=== PATIENT | female | born 1985 | race Caucasian/White ===

== ENCOUNTER 2021-08-09 06:00 | Day surgery (SDC) | payer OTHER ==
[~2021-08-09] VITALS: Ht 162.6 cm; Wt 101.6 kg
[~2021-08-09 06:00] MED LIST: AMOX500 PO; CIPR100 PO; CODGUAEL PO; ESCI20 PO; LOSA25 PO; MULVITMINE; PHENA200 PO; RXCODGUASY PO; TRAZ50 PO
[2021-08-09] MEDS ORDERED: Lisinopril-Hct1 EAC4 PO (06:21)
[2021-08-09] MEDS ORDERED: ZYRTEC10 M2 PO (06:21)
[2021-08-09] MEDS ORDERED: EUTHYROX50 MCG PO (06:22)
[2021-08-09] MEDS ORDERED: OMEP20ER PO (06:22)
--- NOTE | 2021-08-09 07:06 | NUR ---
History, Chart, Medications and Allergies reviewed before start of procedure. Lungs clear T/O to Auscultation. Patient confirms NPO status and agrees with scheduled surgery. Pre-Op teaching done. Pt verbalizes understanding. Patient States Post-Procedure ride home has been arranged. Patient reports completing Chlorhexadine shower X2 prior to admission to hospital.
--- NOTE | 2021-08-09 13:30 | NUR ---
TOOK REPORT FROM SAULO, ASSUMED CARE OF PT. PT'S VSS. PT SITTING UP IN [facility] ON PHONE. DENIES ANY NEEDS AT THIS TIME. WILL CONTINUE TO MONITOR.
--- NOTE | 2021-08-09 14:04 | NUR ---
PT UP TO AMBLULATE. STEADY GAIT.
--- NOTE | 2021-08-09 14:09 | NUR ---
PT ON ROOM AIR AFTER AMBULATION 90%-95%.
--- NOTE | 2021-08-09 15:42 | NUR ---
Discharge instructions reviewed with patient. Patient verbalizes understanding. Copy given to patient to take home. Patient States Post-Procedure ride home has been arranged. Discharged via wheelchair to private car for ride home. IV DCD CATH INTACT PT REMINDEDD TO DO BREATHING EXCERSIZES EVERY FEW HOURS 4 SITES TO ABD WITH DERMABOND IN PLACE CLEAR
--- NOTE | 2021-08-13 10:56 | NUR ---
08/13/21 1056 Anahy Bhagat VERIFICATIONS: EDIT CHART.
== END 2021-08-09 23:44 | disposition home or self-care (01) ==
LOC: ORSCMMR 06:00 → ORD 07:30 → ORSCMMR 07:30 → ORD 09-06 07:30
PROVIDERS: Obstetrics & Gynecology
PROC: 0UT74ZZ Resection of Bilateral Fallopian Tubes, Percutaneous Endoscopic Approach (ICD-10-PCS; principal; 2021-08-09 07:30)
PROC: 0TBB4ZZ Excision of Bladder, Percutaneous Endoscopic Approach (ICD-10-PCS; principal; 2021-08-09 07:30)
PROC: 8E0W4CZ Robotic Assisted Procedure of Trunk Region, Percutaneous Endoscopic Approach (ICD-10-PCS; principal; 2021-08-09 07:30)
DX: N83.201 Unspecified ovarian cyst, right side (principal); N83.202 Unspecified ovarian cyst, left side; Z30.2 Encounter for sterilization; N80.3 Endometriosis of pelvic peritoneum; I10 Essential (primary) hypertension; G47.33 Obstructive sleep apnea (adult) (pediatric); K21.9 Gastro-esophageal reflux disease without esophagitis; E03.9 Hypothyroidism, unspecified; E66.01 Morbid (severe) obesity due to excess calories; Z68.38 Body mass index [BMI] 38.0-38.9, adult; Z79.899 Other long term (current) drug therapy
CPT/HCPCS: 58661; 58662; S2900; 88302; 88305; A9270; J0690; J1100; J2250; J2405; J2704; J3010; J7120

== ENCOUNTER 2024-03-25 11:16 | Day surgery (SDC) | payer OTHER ==
[2024-03-25] VITALS (16 sets, daily range): BP systolic 125–157; BP diastolic 80–100
[~2024-03-25] VITALS: Ht 162.6 cm; Wt 97.6 kg
[~2024-03-25 11:16] MED LIST changes: +EUTHYROX50 MCG PO; +Lisinopril-Hct1 EAC4 PO; +OMEP20ER PO; +ZYRTEC10 M2 PO
[2024-03-25] MEDS ORDERED: CeFAZolin Sodium 2,000 MG in NS 100 ML IV SCH ×2 (12:15→20:00)
[2024-03-25] MEDS ORDERED: Lactated Ringer's 1,000 ML IV SCH ×2 (12:15→17:20)
--- NOTE | 2024-03-25 12:43 | NUR ---
Ambulatory in Day Surgery. History, Chart, Medications and Allergies reviewed before start of procedure. Lungs clear T/O to Auscultation. Patient confirms NPO status and agrees with scheduled surgery. Pre-Op teaching done. Pt verbalizes understanding. PT BELONGINGS PLACED UNDERNEATH GURNEY FOR SAFEKEEPING.
[2024-03-25] MEDS ORDERED: propofoL 20 ML IV ONE (13:21)
[2024-03-25] MEDS ORDERED: Rocuronium Bromide 10 MG/ML 5ML Injection IV ONE ×3 (13:21→15:30)
[2024-03-25] MEDS ORDERED: FentaNYL Citrate 50 MCG/ML 2 ML Injection ONE ×4 (13:21→15:49)
[2024-03-25] MEDS ORDERED: Ondansetron HCl 2 MG / ML 2ML Vial IV PRN ×2 (13:25→17:25)
[2024-03-25] MEDS ORDERED: Midazolam HCl 1MG / ML 2ML Vial IV ONE (13:25)
[2024-03-25] MEDS ORDERED: Lidocaine HCl 1% 5 ML SYR INJ ONE (13:25)
[2024-03-25] MEDS ORDERED: FentaNYL Citrate 50 MCG/ML 2 ML Injection IV PRN ×3 (13:25→13:30)
--- NOTE | 2024-03-25 14:02 | NUR ---
PT HAS PIERCINGS TO LIP, SEPTUM AND NIPPLES THAT CANNOT BE REMOVED. PIERCINGS TAPED. OR NOTIFIED, JEWELRY CONSENT SIGNED. PT BELONGINGS PLACED UNDERNEATH GURNEY FOR SAFEKEEPING. PT GLASSES TAKEN TO PACU FOR SAFEKEEPING.
[2024-03-25] MEDS ORDERED: Labetalol HCL 5 MG/ML 4ML Injection (Single Dose) ONE (14:15)
[2024-03-25] MEDS ORDERED: Dexamethasone Sod Phos 10 MG/ML 1ML VIAL ONE (14:21)
[2024-03-25] MEDS ORDERED: Ondansetron HCl 2 MG / ML 2ML Vial ONE (14:21)
[2024-03-25] MEDS ORDERED: Bupivacaine 0.5% HCl 5 MG/ML 30MLVIAL ONE (15:07)
[2024-03-25] MEDS ORDERED: Sugammadex Sodium 200 MG/2ML SDV (100 MG/ML) ONE (16:07)
[2024-03-25] MEDS ORDERED: Ketorolac Tromethamine 30mg Vial ONE (16:43)
[2024-03-25] MEDS ORDERED: Promethazine HCl 12.5 MG Supp PR PRN (17:15)
[2024-03-25] MEDS ORDERED: Simethicone 80 MG Chew PO PRN (17:15)
[2024-03-25] MEDS ORDERED: Promethazine HCl 25 MG Tab PO PRN (17:20)
[2024-03-25] MEDS ORDERED: HYDROmorphone HCl/Pf 1MG SYR IV PRN (17:20)
[2024-03-25] MEDS ORDERED: OxyCODONE 5 mg/Acetamin 325 mg TABLET PO PRN (17:20)
[2024-03-25] MEDS ORDERED: Naloxone HCL 0.4 MG/ML 1MLSYR IV PRN (17:25)
[2024-03-25] MEDS ORDERED: Ondansetron 4 MG TAB PO PRN (17:25)
--- NOTE | 2024-03-25 18:55 | NUR ---
RESPIRATORY STATUS UPON MELVIN REMOVAL PT REQUESTS TO USE BATHROOM TO ATTEMPT TO VOID. ASSIST TO BATHROOM & O2 REMOVED. PT WAS ALLOWED TO SIT ON TOILET FOR APPROX 30 MINUTES THEN 2nd SET OF POST OP VS OBTAINED & PT WAS FOUND TO BE 80% ON RA. 2 PERSON ASSIST (FOR SAFETY) BACK TO BED & 4L NC APPLIED. ENCOURAGED TO TCDB & O2 LEVERL COME TO 92% & MAINTAIN. HOME CPAP UNAVAILABLE. HOSPITAL CPAP ORDERED.
[2024-03-25] MEDS ORDERED: Ketorolac Tromethamine 30mg Vial IV PRN (19:40)
[2024-03-26 00:09] VITALS: BP 132/91
[2024-03-26 04:23] VITALS: BP 140/89
[2024-03-26 04:44] LABS: BASOPHILS ABSOLUTE AUTO 0.03 K/mm3 (0.00-0.23); BASOPHILS PERCENT AUTO 0 % (0-2); EOSINOPHILS PERCENT AUTO 0 % (0-6); Hematocrit 34.4 % (33.0-51.0); Hemoglobin 11.6 g/dL (11.5-16.0); IMMATURE GRAN ABSOLUTE AUTO 0.07 K/mm3 (0.00-0.10); IMMATURE GRAN PERCENT AUTO 1 % (0-1); LYMPHOCYTES ABSOLUTE AUTO 1.66 K/mm3 (0.84-5.20); LYMPHOCYTES PERCENT AUTO 11 % (21-46); MONOCYTES ABSOLUTE AUTO 0.64 K/mm3 (0.16-1.47); MONOCYTES PERCENT AUTO 4 % (4-13); Mean Corpuscular HGB 30.1 pg (26.0-34.0); Mean Corpuscular HGB Conc 33.7 g/dL (31.5-36.5); Mean Corpuscular Volume 89 fL (80-100); Mean Platelet Volume 10.5 fL (9.1-12.4); NEUTROPHILS ABSOLUTE AUTO 12.48 K/mm3 (1.96-9.15); NEUTROPHILS PERCENT AUTO 84 % (41-73); Platelet Count 291 K/mm3 (150-400); RDW Coefficient Variation 11.9 % (11.7-14.2); RDW Standard Deviation 38.7 fL (35.1-46.3); Red Blood Cell Count 3.85 M/mm3 (3.80-5.20); White Blood Cell Count 14.88 K/mm3 (4.00-11.30)
[2024-03-26] MEDS ORDERED: Levothyroxine Sodium 0.05 MG Tab PO SCH (06:00)
[2024-03-26] MEDS ORDERED: Omeprazole 20 MG CapCR PO SCH (06:00)
--- NOTE | 2024-03-26 06:37 | NUR ---
SHIFT SUMMARY PT A&O X4, COOPERATIVE WITH CARE. VSS; SBP 140'S, AFEBRILE. AT START OF SHIFT PT ON 4 LPM, TITRATED TO RA DURING SHIFT. PT INITIALLY DROPPING INTO 80'S WHILE UP TO RESTROOM BUT THIS HAS IMPROVED OVER THE SHIFT. PT RA NOW, USING CPAP; NO O2 BLEED IN. PT LOOKS BETTER AND STATES SHE "IS FEELING MUCH BETTER". PT COMPLAINING OF SEVERE BACK, HIP AND ABD PAIN AT THE START OF SHIFT; TORODOL PER EMAR WITH GREAT RELIEF. PT DID NOT REQUIRE ANY PAIN MEDICATION AFTER ADMINISTRATION OF TORODOL. PT AMBULATING TO RESTROOM, SBA FOR SAFETY. ADEQUATE UOP, WITH MINIMAL BLOOD NOTED IN URINE AND PAD. PT WITH MODERATE NAUSEA AT START OF SHIFT, ZOFRAN X1 WITH GOOD RELIEF. PT NOW TOLERATING PO INTAKE; HAD A SANDWICH AND TOLERATING WATER. ABLE TO MAKE NEEDS KNOWN, CALL LIGHT IN REACH. ABX PER SEP. WILL UPDATE ONCOMING RN.
[2024-03-26 07:37] VITALS: BP 131/92
[2024-03-26] MEDS ORDERED: Loratadine 10 MG Tab PO SCH (09:00)
[2024-03-26] MEDS ORDERED: Lisinopril 10 MG Tab PO SCH (09:00)
[2024-03-26] MEDS ORDERED: HydroCHLOROthiazide 25 mg Tab PO SCH (09:00)
[2024-03-26] MEDS ORDERED: Estradiol 1 MG Tab PO SCH (09:00)
[2024-03-26] MEDS ORDERED: ESTR2 PO (12:33)
[2024-03-26] MEDS ORDERED: Percocet 5-3251 EACH PO (12:34)
[2024-03-26] MEDS ORDERED: PROM25 PO (12:34)
[2024-03-26] MEDS ORDERED: SIME80CH PO (12:35)
--- NOTE | 2024-03-26 12:57 | NUR ---
DISCHARGE PT EDUCATED ON AND RECEIVED PRINTED DC INSTRUCTIONS AND VERB AN UNDERSTANDING. RX FAXED TO [facility]. IVS DC'D. PT GETTING DRESSED AND RIDE TO BE HERE AT APPROX 1345 TO TAKE HER HOME. PT GATHERING ALL PERSONAL BELONGINGS.
== END 2024-03-26 13:52 | disposition home or self-care (01) ==
LOC: ORSCMMR 11:16 → ORD 12:30 → SURS 18:16 → ORSCMMR 03-26 13:52
PROVIDERS: Obstetrics & Gynecology
DX: N92.1 Excessive and frequent menstruation with irregular cycle (principal); N80.9 Endometriosis, unspecified; N94.6 Dysmenorrhea, unspecified; N94.10 Unspecified dyspareunia; R10.2 Pelvic and perineal pain; N72 Inflammatory disease of cervix uteri; N94.89 Other specified conditions associated with female genital organs and menstrual cycle; N83.292 Other ovarian cyst, left side; I10 Essential (primary) hypertension; K21.9 Gastro-esophageal reflux disease without esophagitis; E03.9 Hypothyroidism, unspecified; Z68.37 Body mass index [BMI] 37.0-37.9, adult; Z79.899 Other long term (current) drug therapy
CPT/HCPCS: 36415; 85025; 86850; 86900; 86901; 88307; 94660; A9270; J0690; J1100; J1885; J2250; J2405; J2704; J3010; J7120